=== PATIENT | male | born 1985 | race Caucasian/White ===

== ENCOUNTER → 2025-03-23 11:17 | Outpatient (CLI) | payer OTHER, SELFPAY ==
--- NOTE | 2025-03-23 11:18 | DI.US.S_ITS ---
PROCEDURE: US SCROTUM INDICATIONS: INFERTILITY ?ONE TESTICLE HIGHER THAN THE OTHER SINCE CHILD TECHNIQUE: Real-time scanning was performed of the scrotum and testicles, with image documentation. Color and pulse Doppler interrogation was performed of both testicles. COMPARISON: None. FINDINGS: Right: Testicle is normal in size at 5.2 x 3.5 x 2.3 cm, and homogenous in echotexture. Epididymis is normal in overall size and morphology. No hydrocele or varicoceles. Overlying scrotal skin is normal in thickness. Left: Testicle is normal in size at 4.7 x 3.4 x 2.3 cm, and homogeneous in echotexture. Epididymis is normal in overall size and morphology. No hydrocele or varicoceles. Overlying scrotal skin is normal in thickness. Doppler: Color and pulse Doppler demonstrate normal and symmetric arterial flow in both testicles. IMPRESSION: Unremarkable examination. No acute abnormality or focal lesion seen. Dictated by: Brenton Infante M.D. on 03/24/2025 at 18:26 Approved by: Brenton Infante M.D. on 03/24/2025 at 18:27
== END ==
PROVIDERS: PCP Physician Assistant Medical; Referring Provider Physician Assistant Medical; Visit Provider Physician Assistant Medical
DX: N50.89 Other specified disorders of the male genital organs (principal); N46.9 Male infertility, unspecified; R39.9 Unspecified symptoms and signs involving the genitourinary system
CPT/HCPCS: 76870; 81002; 99213